=== PATIENT | female | born 1975 | race African-American/Black ===

== ENCOUNTER 2020-12-11 23:38 | Inpatient (IN) ==
[2020-12-12] MEDS ORDERED: SODIUM CHLORIDE 0.9% 1,000 ML IV STA (00:35)
[2020-12-12] MEDS ORDERED: ACETAMINOPHEN 325 MG TABLET PO PRN (02:05)
[2020-12-12] MEDS ORDERED: ONDANSETRON 4 MG/2 ML VIAL IV PRN (02:05)
[2020-12-12] MEDS ORDERED: hydrALAZINE 20 MG/1 ML VIAL IV PRN (02:05)
[2020-12-12] MEDS ORDERED: GLUCAGON 1 MG VIAL IM PRN (02:05)
[2020-12-12] MEDS ORDERED: DEXTROSE 50% 25 GM/50 ML VIAL IV PRN (02:05)
[2020-12-12] MEDS ORDERED: PHYTONADIONE 10 MG/1 ML AMP SUBCUT STA (02:05)
[2020-12-12] MEDS ORDERED: PHYTONADIONE 10 MG/1 ML AMP ONE (03:26)
[2020-12-12] MEDS: LACTATED RINGERS 1,000 ML IV SCH ×3 (04:29→23:37)
[2020-12-12] MEDS: PANTOPRAZOLE 40 MG VIAL IV SCH ×2 (04:30→21:40)
[2020-12-12] MEDS: MORPHINE 2 MG/1 ML SYRINGE IV PRN ×2 (05:55→10:36)
[2020-12-12 07:33] LABS: Hematocrit 26.4 VOL% (35.7-47.0); Hemoglobin 8.5 GM/DL (12.0-16.0); Mean Corpuscular HGB Conc 32.2 GM/DL (32-36); Mean Platelet Volume 9.5 FL (9.6-12.0); Platelet Count 257 T/CUMM (130-400); Red Cell Distribution Width 17.8 % (9.3-17.3)
[2020-12-12 07:34] LABS: Basophils % 0.4 % (0.0-0.8); Immature Granulocytes % 1.7 %; Monocytes % 5.1 % (1.7-12.7); Neutrophils % 85.8 % (38.7-73.9)
[2020-12-12 07:36] LABS: PT Patient Result 65.8 SECS (10.5-12.0)
[2020-12-12 07:37] LABS: INR 6.7
[2020-12-12 08:13] LABS: Hematocrit 22.8 VOL% (35.7-47.0); Hemoglobin 7.2 GM/DL (12.0-16.0)
[2020-12-12 14:13] LABS: Hematocrit 18.8 VOL% (35.7-47.0)
[2020-12-12 14:25] LABS: Hemoglobin 5.9 GM/DL (12.0-16.0)
[2020-12-12] MEDS ORDERED: SODIUM CHLORIDE 0.9% 1,000 ML IV PRN (14:29)
[2020-12-12 14:37] LABS: % Iron Saturation 13.7 % (18-50); Ferritin 20.6 ng/mL (8-252)
[2020-12-12] MEDS ORDERED: PHYTONADIONE 5 MG/5 ML ORAL.SYR PO ONE (15:43)
[2020-12-12 20:34] LABS: Bilirubin,Urine Negative (Negative); Blood, Urine Small mg/dL (Negative); Glucose,Urine (UA) Negative (Negative); Ketones,Urine Negative (Negative); Nitrite,Urine Negative (Negative); Protein,Urine Negative; RBC,Urine 1 /HPF (0-4); Squamous Epithelial Cell,Urine Occasional /HPF (0-10); Urine Appearance CLEAR (Clear); Urine Color Straw (Yellow); Urine Specific Gravity 1.011 (1.001-1.035); Urine Urobilinogen < 2.0 EU/DL (0.2-1.0)
[2020-12-12] MEDS ORDERED: ZALEPLON 5 MG CAPSULE PO ONE (20:37)
[2020-12-12 23:29] LABS: Hematocrit 20.8 VOL% (35.7-47.0); Hemoglobin 6.7 GM/DL (12.0-16.0)
[2020-12-13 06:47] LABS: INR 2.2; PT Patient Result 23.6 SECS (10.5-12.0)
[2020-12-13 06:54] LABS: Basophils # 0.1 10*3/uL (0.0-0.2); Basophils % 0.3 % (0.0-0.8); Eosinophils % 0.1 % (0.00-10.9); Hematocrit 24.7 VOL% (35.7-47.0); Immature Granulocytes % 1.7 %; Immature Granulocytes Absolute 0.39 #; Lymphocytes # 2.5 10*3/uL (1.4-4.0); Lymphocytes % 11.3 % (21.3-54.2); Mean Corpuscular HGB Conc 32.8 GM/DL (32-36); Mean Corpuscular Volume 88.8 FL (87-102); Mean Platelet Volume 9.5 FL (9.6-12.0); Monocytes % 10.1 % (1.7-12.7); NRBC # 0.24 10*3/uL; Neutrophils % 76.5 % (38.7-73.9); Red Blood Count 2.78 MC/CUMM (3.8-5.5); Red Cell Distribution Width 16.2 % (9.3-17.3); White Blood Count 22.3 T/CUMM (4-12)
[2020-12-13 06:57] LABS: Hemoglobin 8.1 GM/DL (12.0-16.0); Platelet Count 169 T/CUMM (130-400)
[2020-12-13 07:02] LABS: Hypochromasia 1+; Lymphocytes 8 % (20-55); Microcytosis 1+; Nucleated Red Blood Cells 4 (0-5); Platelet Estimate Adequate; Segmented Neutrophils 88 % (50-85); Total Cells Counted 100
[2020-12-13 07:13] LABS: Albumin 2.5 G/DL (3.4-5.0); Bilirubin,Total 0.8 MG/DL (0.20-1.00); Calcium 7.9 MG/DL (8.5-10.1); Osmolality,Calculated 296.1 MOS/KG (273-304); Potassium 4.7 MMOL/L (3.5-5.1); Total Protein 5.5 G/DL (6.4-8.2)
[2020-12-13] MEDS: amLODIPine 10 MG TABLET PO SCH (09:06)
[2020-12-13] MEDS: carvediloL 25 MG TABLET PO SCH ×2 (09:06→20:28)
[2020-12-13] MEDS: PANTOPRAZOLE 40 MG VIAL IV SCH ×2 (09:07→20:27)
[2020-12-13] MEDS: DONEPEZIL 10 MG TABLET PO SCH (09:07)
[2020-12-13] MEDS: LACTATED RINGERS 1,000 ML IV SCH (09:13)
[2020-12-13] MEDS: MORPHINE 2 MG/1 ML SYRINGE IV PRN (20:24)
[2020-12-13] MEDS ORDERED: ZALEPLON 5 MG CAPSULE PO ONE (23:19)
[2020-12-14] MEDS: MORPHINE 2 MG/1 ML SYRINGE IV PRN (02:00)
[2020-12-14] MEDS: LACTATED RINGERS 1,000 ML IV SCH ×4 (02:01→20:40)
[2020-12-14 06:04] LABS: Basophils % 0.3 % (0.0-0.8); Eosinophils # 0.2 10*3/uL (0.0-0.87); Eosinophils % 1.8 % (0.00-10.9); Hematocrit 18.4 VOL% (35.7-47.0); Immature Granulocytes % 1.2 %; Immature Granulocytes Absolute 0.16 #; Lymphocytes # 2.3 10*3/uL (1.4-4.0); Lymphocytes % 17.5 % (21.3-54.2); Mean Corpuscular HGB Conc 33.7 GM/DL (32-36); Mean Platelet Volume 9.9 FL (9.6-12.0); Monocytes % 9.4 % (1.7-12.7); NRBC # 0.05 10*3/uL; Neutrophils % 69.8 % (38.7-73.9); Platelet Count 168 T/CUMM (130-400); Red Cell Distribution Width 16.2 % (9.3-17.3)
[2020-12-14 06:17] LABS: Red Blood Count 2.09 MC/CUMM (3.8-5.5); White Blood Count 13.4 T/CUMM (4-12)
[2020-12-14 06:18] LABS: Hemoglobin 6.2 GM/DL (12.0-16.0)
[2020-12-14 06:20] LABS: Calcium 7.8 MG/DL (8.5-10.1); Osmolality,Calculated 287.5 MOS/KG (273-304); PT Patient Result 11.6 SECS (10.5-12.0); Potassium 3.8 MMOL/L (3.5-5.1)
[2020-12-14] MEDS ORDERED: SODIUM CHLORIDE 0.9% 1,000 ML IV PRN ×2 (07:27→07:36)
[2020-12-14] MEDS: DONEPEZIL 10 MG TABLET PO SCH (09:49)
[2020-12-14] MEDS: carvediloL 25 MG TABLET PO SCH ×2 (09:50→20:40)
[2020-12-14] MEDS: PANTOPRAZOLE 40 MG VIAL IV SCH ×2 (09:51→20:29)
[2020-12-14] MEDS: amLODIPine 10 MG TABLET PO SCH (09:51)
[2020-12-14 19:54] LABS: Hematocrit 24.6 VOL% (35.7-47.0); Hemoglobin 8.4 GM/DL (12.0-16.0)
[2020-12-15] MEDS: LACTATED RINGERS 1,000 ML IV SCH ×4 (02:53→16:25)
[2020-12-15] MEDS: MORPHINE 2 MG/1 ML SYRINGE IV PRN ×3 (02:53→20:40)
[2020-12-15 06:32] LABS: Basophils % 0.4 % (0.0-0.8); Eosinophils # 0.2 10*3/uL (0.0-0.87); Eosinophils % 1.6 % (0.00-10.9); Hemoglobin 8.1 GM/DL (12.0-16.0); Immature Granulocytes % 0.8 %; Immature Granulocytes Absolute 0.09 #; Lymphocytes % 18.7 % (21.3-54.2); Mean Corpuscular HGB Conc 33.8 GM/DL (32-36); Mean Corpuscular Volume 88.2 FL (87-102); Mean Platelet Volume 9.5 FL (9.6-12.0); Monocytes % 12.3 % (1.7-12.7); NRBC # 0.02 10*3/uL; Neutrophils % 66.2 % (38.7-73.9); Platelet Count 161 T/CUMM (130-400); Red Blood Count 2.72 MC/CUMM (3.8-5.5); Red Cell Distribution Width 15.2 % (9.3-17.3); White Blood Count 10.9 T/CUMM (4-12)
[2020-12-15 06:49] LABS: INR 0.9; PT Patient Result 10.5 SECS (10.5-12.0)
[2020-12-15 06:54] LABS: Calcium 7.8 MG/DL (8.5-10.1); Osmolality,Calculated 282.4 MOS/KG (273-304); Potassium 3.7 MMOL/L (3.5-5.1)
[2020-12-15] MEDS: PANTOPRAZOLE 40 MG VIAL IV SCH ×2 (08:59→20:28)
[2020-12-15] MEDS: DONEPEZIL 10 MG TABLET PO SCH (09:00)
[2020-12-15] MEDS: amLODIPine 10 MG TABLET PO SCH (09:00)
[2020-12-15] MEDS: carvediloL 25 MG TABLET PO SCH ×2 (09:00→20:24)
[2020-12-16] MEDS: LACTATED RINGERS 1,000 ML IV SCH ×4 (02:07→10:43)
[2020-12-16 06:15] LABS: Basophils % 0.3 % (0.0-0.8); Eosinophils # 0.2 10*3/uL (0.0-0.87); Eosinophils % 2.2 % (0.00-10.9); Hematocrit 24.3 VOL% (35.7-47.0); Hemoglobin 8.3 GM/DL (12.0-16.0); Immature Granulocytes % 0.7 %; Immature Granulocytes Absolute 0.06 #; Lymphocytes # 1.6 10*3/uL (1.4-4.0); Lymphocytes % 17.8 % (21.3-54.2); Mean Corpuscular HGB Conc 34.2 GM/DL (32-36); Mean Corpuscular Volume 89.3 FL (87-102); Mean Platelet Volume 9.6 FL (9.6-12.0); Platelet Count 192 T/CUMM (130-400); Red Blood Count 2.72 MC/CUMM (3.8-5.5); Red Cell Distribution Width 14.9 % (9.3-17.3); White Blood Count 9.1 T/CUMM (4-12)
[2020-12-16 06:38] LABS: Calcium 8.1 MG/DL (8.5-10.1); Osmolality,Calculated 280.4 MOS/KG (273-304); Potassium 4.1 MMOL/L (3.5-5.1)
[2020-12-16] MEDS ORDERED: DEXTROSE 50% 25 GM/50 ML VIAL IV ONE (08:25)
[2020-12-16] MEDS ORDERED: propofoL 200 MG/20 ML VIAL IV ONE (09:36)
[2020-12-16] MEDS ORDERED: LIDOCAINE 2% 5 ML VIAL ONE (09:36)
[2020-12-16] MEDS ORDERED: LACTATED RINGERS 1,000 ML IV ONE (09:36)
[2020-12-16] MEDS: PANTOPRAZOLE 40 MG VIAL IV SCH (10:36)
[2020-12-16] MEDS: carvediloL 25 MG TABLET PO SCH (10:37)
[2020-12-16] MEDS: amLODIPine 10 MG TABLET PO SCH (10:37)
[2020-12-16] MEDS: DONEPEZIL 10 MG TABLET PO SCH (10:37)
[2020-12-16] MEDS: MORPHINE 2 MG/1 ML SYRINGE IV PRN (10:41)
[2020-12-16 12:39] VITALS: BP 126/71
== END 2020-12-16 15:13 | disposition home or self-care (01) | DRG 378 ==
LOC: N.ED 23:38 → N.EDINP 12-12 02:05 → N.TELEN 12-12 05:42
PROVIDERS: ADMIT Hospitalist; ATTEND Hospitalist